=== PATIENT | male | born 1945 | race Caucasian/White ===

== ENCOUNTER 2016-12-29 09:29 | Day surgery (SDC) | payer MEDICARE, BC ==
[2016-12-29] MEDS ORDERED: LIDOCAINE HCL 1% MDV 20 ML VIAL SQ ONE (14:00)
[2016-12-29] MEDS ORDERED: TRAMADOL HCL 50 MG TABLET PO ONE (14:13)
[2016-12-29] MEDS ORDERED: PROPOFOL 10 MG/ML VIAL IV ONE (14:15)
[2016-12-29] MEDS ORDERED: MORPHINE SULFATE 5 MG/ML PFS IVP ONE (14:15)
[2016-12-29] MEDS ORDERED: LIDOCAINE 2% MDV (20MG/ML) 20ML VIAL IV ONE (14:15)
--- NOTE | 2017-01-02 10:50 | Operative Note ---
DATE OF SERVICE: 12/29/2016. DATE OF SURGERY: 12/29/2016. Surgeon: Robb Sesay DO. REFERRING PHYSICIAN: Giacomo Ge MD. PREOPERATIVE DIAGNOSES: 1. Trigger finger of the right thumb. 2. Trigger finger, right index finger. POSTOPERATIVE DIAGNOSES: 1. Trigger finger of the right thumb. 2. Trigger finger, right index finger. OPERATION: 1. Tenotomy, A1 glenn, right thumb. 2. Tenotomy, A1 glenn, right index finger. PROCEDURE: This 71-year-old male was taken to the operating room, placed in the supine position on the operating room table, where assisted local anesthesia was utilized; 1% Xylocaine plain was used as a local anesthetic, infiltrating the skin of the flexure crease of the thumb, as well as the area overlying the A1 glenn of the right index finger. After appropriate sedation, the right upper extremity was prepped, local anesthetic instilled, and an incision was made in the flexor crease of the MCP joint, and dissection was carried down through the skin and subcutaneous tissue. The radial digital nerve was easily identified in the thumb, and this was retracted and protected to expose the A1 glenn, which was incised from its proximal to its distal margin under direct vision, and the tendon was completely freed. A significant amount of fraying of the flexor pollicis longus tendon was present. An odd staining of the tendon was also noted. Almost appeared to be a hemosiderin-type stain. There was increased fluid in the tendon sheath, as well. The wound was irrigated, and there was no debridement of the tendon to do, but the superficial fraying was not further disturbed. The wound was closed with interrupted 6-0 nylon suture. We then directed our attention to the index finger, making a longitudinal incision overlying the 2nd metacarpal head, and dissection was carried down through the skin and subcutaneous tissue. Approximately a cm and a half incision was used and the proximal edge of the A1 glenn identified, and the glenn was split from its proximal to its distal margin. Again some minor fraying of the tendon was noted with what appeared to be a yellowish-brown hemosiderin-type stain on the tendon, but the tendon passed freely. There was mild nodularity of the sublimis tendon of the index finger and flexor pollicis longus of the thumb. The index finger wound was irrigated and closed with interrupted 6-0 nylon suture, as was the thumb incision. Sterile dressings were applied, and the patient was taken to the recovery room in satisfactory condition. GROSS PATHOLOGY: This patient demonstrated minor fraying of both the thumb and index finger tendons, as described above with the yellowish staining. In addition, there was minor nodularity of the superficialis of the index finger and flexor pollicis longus of the thumb. JANND
== END 2016-12-29 12:30 | disposition home or self-care (01) ==
LOC: SUR 09:29
PROVIDERS: ATTEND Orthopaedic Surgery
DX: M65.311 Trigger thumb, right thumb (principal); M65.321 Trigger finger, right index finger; E11.9 Type 2 diabetes mellitus without complications; Z79.84 Long term (current) use of oral hypoglycemic drugs; Z79.4 Long term (current) use of insulin; I10 Essential (primary) hypertension; E03.9 Hypothyroidism, unspecified; Z79.02 Long term (current) use of antithrombotics/antiplatelets
CPT/HCPCS: 26055 ×2; 01810; J2270

== ENCOUNTER 2017-02-15 10:58 | Day surgery (SDC) | payer MEDICARE, BC ==
--- NOTE | 2017-02-15 07:16 | History and Physical Report ---
DATE: 02/15/2017. CHIEF COMPLAINT AND HISTORY OF CHIEF COMPLAINT: This patient presents with a history of an intractable lumbar radiculitis. Due to the failure of all therapies, a spinal cord stimulator trial was conducted on January 31, 2017, with 75 to 90 percent pain control. Due to the failure of all therapies and the success of the trial, he presents today for implantation of a permanent system. PAST MEDICAL HISTORY: Hypertension. PAST SURGICAL HISTORY: To be provided. MEDICATIONS ON ADMISSION: Plavix, aspirin, fish oil. ALLERGIES: To be provided. REVIEW OF SYSTEMS: The patient is appropriate and in no acute distress. The remainder of the systems review shows glasses, peripheral neuropathy, sleep disturbance, blood pressure problems, coronary artery disease, renal disease, degenerative arthritis. SOCIAL HISTORY: Noncontributory. FAMILY HISTORY: Hypertension, coronary artery disease, cancer. PHYSICAL EXAMINATION: General: Height is 5 feet, 5 inches. Weight is 240 pounds. Vital Signs: Not available. HEENT: Within normal limits. Lungs: Clear. Heart: Regular rate and rhythm. Abdomen: Nontender. Musculoskeletal: Examination of the musculoskeletal system shows diffuse tenderness in the lumbar spine. Range of motion causes pain throughout the low back and extending into the extremities. Ambulation: No assistive device utilized. Neurologic: Cranial nerves are intact. IMPRESSION: LUMBAR RADICULITIS, ICD-10 CODE M54.16 AND M54.17. PLAN: Due to the failure all therapies and the success of the trial, the patient is here for implantation of a permanent system. All of the potential risks, side effects, and complications have been carefully reviewed and discussed. Information from the solution strategist also outlining the risks, side effects, and complications has been reviewed. He understands and consents. The risks of spinal headache, nerve root injury, and spinal cord injury have all been discussed. The procedure will be performed on an outpatient basis. An overnight stay will be evaluated. ARLEEN HERRERA D.O. Date & Time JOB NUMBER: [id number] cc: Ledy Shepherd D.O. MTDD
[~2017-02-15 10:58] MED LIST: ACETAMINOPHEN 1,000 MG/100 ML BTL IV ONE; FAMOTIDINE 20MG TABLET PO ONE; MECLIZINE 25 MG TABLET PO ONE; METOCLOPRAMIDE 10 MG TABLET PO ONE; VANCOMYCIN HCL 1,000 MG in 0.9 % SODIUM CHLORIDE 250ML 250 ML IVPB ONE
[2017-02-15] MEDS ORDERED: PROPOFOL 10 MG/ML VIAL IV ONE (10:59)
[2017-02-15] MEDS ORDERED: LIDOCAINE 1% W/EPI 1:200,000 MPF 30ML SQ ONE (10:59)
[2017-02-15] MEDS ORDERED: FENTANYL PF 100MCG/2ML VIAL IV ONE (10:59)
[2017-02-15] MEDS ORDERED: BUPIVACAINE 0.75% W/EPI MPF 30ML VIAL IVP ONE (10:59)
[2017-02-15] MEDS ORDERED: MIDAZOLAM HCL 2MG/2ML VIAL IV ONE (10:59)
[2017-02-15] MEDS ORDERED: VANCOMYCIN HCL 500 MG VIAL IV ONE (10:59)
[2017-02-15] MEDS ORDERED: LIDOCAINE 2% MDV (20MG/ML) 20ML VIAL IV ONE (10:59)
[2017-02-15] MEDS ORDERED: ACETAMINOPHEN 325 MG TAB PO PRN ×2 (15:41)
[2017-02-15] MEDS ORDERED: METOCLOPRAMIDE 10 MG TABLET PO PRN (15:41)
[2017-02-15] MEDS ORDERED: DIPHENHYDRAMINE HCL IV 50 MG/ML VIAL IVP PRN ×2 (15:41)
[2017-02-15] MEDS ORDERED: HYDROCODONE/APAP 7.5/325MG TABLET PO PRN ×2 (15:41)
[2017-02-15] MEDS ORDERED: METOCLOPRAMIDE HCL 10 MG/2 ML VIAL IVP PRN (15:41)
[2017-02-15] MEDS ORDERED: HYDROMORPHONE HCL 2 MG/ML VIAL IM PRN (15:41)
[2017-02-15] MEDS ORDERED: OXYCODONE/APAP 10MG-325MG TABLET PO PRN ×2 (15:41)
[2017-02-15] MEDS ORDERED: AL HYDROX/MAG HYDROX 30ML UD PO PRN (15:41)
[2017-02-15] MEDS ORDERED: HYDROMORPHONE HCL 1 MG/ML CPJ IM PRN (15:41)
[2017-02-15] MEDS ORDERED: TEMAZEPAM 15 MG CAPSULE PO PRN ×2 (15:41)
[2017-02-15] MEDS ORDERED: DIPHENHYDRAMINE HCL 25 MG CAPSULE PO PRN ×2 (15:41)
[2017-02-15] MEDS ORDERED: SENNOSIDES/DOCUSATE SODIUM UD CAPSULE PO PRN ×2 (15:41)
[2017-02-15] MEDS ORDERED: 0.9 % SODIUM CHLORIDE 10ML SYR IVP SCH (22:00)
[2017-02-16] MEDS ORDERED: VANCOMYCIN HCL 1,000 MG in 0.9 % SODIUM CHLORIDE 250ML 250 ML IVPB ONE (01:00)
--- NOTE | 2017-02-16 10:20 | RADIOLOGY REPORT ---
EXAM: THORACOLUMBAR SPINE, SINGLE VIEW HISTORY: POSTOP. TECHNIQUE: A single AP view of the thoracic and lumbar spines was obtained. Comparison: 02/01/17 exam. FINDINGS: There are two stimulating wires with the proximal tips projecting over the superior T7 vertebral body. In addition, there is a new electronic device projecting over the right lower quadrant. Post surgical changes of the lumbar spine. IMPRESSION: NEW ELECTRONIC PUMP DEVICE PROJECTING OVER THE RIGHT LOWER QUADRANT. OTHER FINDINGS ARE GROSSLY STABLE. J[facility]BER: [id number] [facility]
--- NOTE | 2017-02-16 16:07 | Operative Note - [place] ---
DATE OF SURGERY: 02/15/17 PREOPERATIVE DIAGNOSES: 1. POST LUMBAR LAMINECTOMY SYNDROME, ICD-10 CODE = M96.1. 2. LUMBAR RADICULITIS, ICD-10 CODE = M54.16 AND M54.17. OPERATION: 1. FLUOROSCOPICALLY-GUIDED RIGHT EPIDURAL ACCESS T10-11, PLACEMENT OF SPINAL CORD STIMULATOR LEAD 1, A [employer] INFINION 16 WITH 16 ELECTRODES POSITIONED RIGHT T6. 2. FLUOROSCOPICALLY-GUIDED EPIDURAL ACCESS RIGHT T11/12. PLACEMENT OF SPINAL CORD STIMULATOR LEAD 2, A [employer] INFINION 16 WITH 16 ELECTRODES POSITIONED LEFT T6. 3. COMPLEX PROGRAMMING LEAD 1 OVER 20 MINUTES FOLLOWED BY COMPLEX PROGRAMMING OF LEAD 2 OVER 20 MINUTES. 4. INCISION, SUBCUTANEOUS DISSECTION, AND ANCHORING OF LEAD 1 AND LEAD 2 TO DEEP FASCIA WITH A [employer] LOCKING ANCHOR AND NONABSORBABLE SUTURE. 5. INCISION, SUBCUTANEOUS DISSECTION, AND CREATION OF A SUBCUTANEOUS POUCH AT RIGHT FLANK, SITE PICKED BY PATIENT, FOR GENERATOR IDENTIFIED [employer] PROGRAMMABLE RECHARGEABLE. 6. TUNNELING BETWEEN POUCHES, PLACEMENT OF EXTERNAL PORTION OF LEAD 1 AND LEAD 2 INTO GENERATOR POUCH, EACH LEAD INTERFACED TO GENERATOR. 7. SECURING OF GENERATOR TO POSTERIOR FASCIA AND THEN CLOSURE OF BOTH INCISIONS , VICRYL FOR FASCIA AND A RUNNING SUBCUTICULAR VICRYL FOR SKIN. DERMABOND CLOSURE TO APPROXIMATE EDGES OF THE WOUND. 8. COMPLEX RECOVERY ROOM PROGRAMMING INTERNAL GENERATOR HOME USE TWO STIMULATORS , 20 MINUTES. SURGEON: ARLENE HERRERA D.O. ANESTHESIA: LOCAL SEDATION. ANESTHESIA PROVIDER: SUHAS ROCK CRNA. INDICATION: This patient presents with a history of postlaminectomy radiculitis. Due to the failure of all therapies, stimulator trial was conducted with 75 to 80% pain control. Due to the failure of other therapies and the successful of the stimulator trial, he presents today for implantation of a permanent system. PROCEDURE: Intravenous line, vital sign monitoring, IV sedation, prepped and draped in sterile technique. Under imaging, the epidural interspace right of the midline at 10-11 and 11-12 were marked, infiltrated, and two separate curved access Epimed needles with [id number]. At 10-11, spinal cord stimulator lead 1, a [employer] Infinion 16 with 16 electrodes, positioned right of midline T6. With the epidural access right of midline at 11- 12, spinal cord stimulator lead 2, also a [employer] Infinion 16 with 16 electrodes positioned left of the midline at T6. Complex programming of lead 1 over 20 minutes followed by complex programming of lead 2 over 20 minutes ultimately resulting in a pattern of stimulation across the back and into legs; patient indicating we were in all of the areas of the pain. He was given the option to implant, continue to program or remove; he opted to implant. Questions repeated with the same response. The skin above both needles infiltrated, incision made, and subcutaneous dissection was conducted to form a pouch of suitable size and depth for the leads. The needles were removed then each lead was anchored to the supraspinous fascia with a [employer] [place] and nonabsorbable suture. At the right flank, the site picked by the patient for the generator, a [employer] Programmable Rechargeable, skin infiltrated, incision made, and subcutaneous dissection was conducted to form a pouch of suitable size and depth for the generator. A tunneling tool was used to carry the leads into the generator pouch and then each lead was interfaced to the generator. The generator was then secured to the fascia with nonabsorbable suture. The leads were placed into their own pouch and then both incisions were closed Vicryl for fascia and a running subcuticular Vicryl for skin. A Dermabond closure system was then used to approximate the edges of both wounds. He was transported to the Recovery Room stable showing no side-effects from the procedure or the sedation. When fully awake and alert, complex programming was then performed over 20 minutes re-establishing stimulation and pain control to all of the appropriate areas. He was instructed on the use of the system, provided with information and error messaging, and then prepared for discharge. DISCHARGE INSTRUCTIONS: 1. Although the Dermabond will allow showering, this should not happen for 24 hours. 2. Standard medications including Levaquin, the antibiotic, 500 mg once a day for 14 days. 3. All other medications resumed. 4. The office will contact the patient in the next 24-48 hours to set up an appointment in the office in 5-7 days to check the incisions. Until then, his activities should stay low. Limit bend, lift, push, pull. All other instructions provided, numbers to contact, problems given. At that point, he will be discharged. cc: Dr. Giacomo Haro JOB NUMBER: [id number] [facility]
== END 2017-02-15 20:00 | disposition home or self-care (01) ==
LOC: SUR 10:58 → MEDSURG 15:36 → SUR 20:00
PROVIDERS: ATTEND Pain Medicine Interventional Pain Medicine
DX: M96.1 Postlaminectomy syndrome, not elsewhere classified (principal); M54.16 Radiculopathy, lumbar region; M54.17 Radiculopathy, lumbosacral region; E11.9 Type 2 diabetes mellitus without complications; Z79.84 Long term (current) use of oral hypoglycemic drugs; Z79.4 Long term (current) use of insulin; I10 Essential (primary) hypertension; E03.9 Hypothyroidism, unspecified; E78.00 Pure hypercholesterolemia, unspecified
CPT/HCPCS: 63685; 63650 ×2; 01936; 95972; 85002; 72020; J3370; J3010; J3490; J7050

== ENCOUNTER 2018-03-17 18:12 | Observation (INO) | payer MEDICARE, BC ==
[2018-03-17] MEDS ORDERED: ONDANSETRON HCL IV 4 MG/2 ML VIAL IV ONE (18:29)
[2018-03-17] MEDS ORDERED: SODIUM CHLORIDE 0.9% 500 ML IV ONE (18:29)
[2018-03-17] MEDS ORDERED: HYDROMORPHONE HCL 2 MG/ML VIAL IVP ONE ×3 (18:30→20:05)
--- NOTE | 2018-03-17 18:34 | Emergency Department Record ---
History of Present Illness - General Chief Complaint: Abdominal Pain Stated Complaint: RT SIDE PAIN Time Seen by Provider: 03/17/18 18:18 Source: Patient Mode of Arrival: Ambulatory Limitations: No limitations - History of Present Illness Initial Comments: The patient is here due to RUQ AP which began about 4 hours ago. The pain is sharp and stabbing and does radiate around to his back. The patient has had no nausea, vomiting, diarrhea or fever. He had a similar issues on 12/30/17 and he did come to the ER and had a neg workup. The pain did resolve with Dilaudid on that visit. He then also did have a neg Abd US on 01/05/18 as an outpatient. Additionally the patient did have a small amount of "clamminess" with the onset of the pain and felt like his blood sugar could have been low. He did check it and it was just over 100. There was no reported CP, SOB, MARYJANE, or nausea with the clamminess. The patient does have an extensive cardiac hx with a neg nuclear stress test 6 weeks ago. MD Complaint: Abdominal pain Onset/Timin -: Hour(s) Location: RUQ Radiation: Back Severity: Moderate Severity scale (1-10): 9 Quality: Sharp, Stabbing Consistency: Constant Improves With: Nothing Worsens With: Nothing - Related Data Allergies Allergy/AdvReac Type Severity Reaction Status Date / Time hydralazine Allergy CHEST PAIN Verified 03/17/18 18:17 Travel Screening - Travel/Exposure Within Last 30 Days Have you traveled within the last 30 days?: No - Travel/Exposure Within Last Year Have you traveled outside the [place] in the last year?: No - Additonal Travel Details Have you been exposed to anyone with a communicable illness?: No - Travel Symptoms Symptom Screening: None Review of Systems Constitutional: Denies: Chills, Fever Eyes: Denies: Eye discharge ENT: Denies: Congestion Respiratory: Denies: Cough, Dyspnea Cardiovascular: Denies: Arrhythmia, Chest pain Endocrine: Denies: Fatigue Gastrointestinal: Reports: Abdominal pain. Denies: Diarrhea, Nausea Genitourinary: Denies: Dysuria Musculoskeletal: Reports: Back pain (Chronic.). Denies: Arthralgia Skin: Denies: Bruising Past Medical History - SOCIAL HISTORY Smoking Status: Never smoker Alcohol Use: None Drug Use: None - RESPIRATORY Hx Respiratory Disorders: Yes Hx Pneumonia: Yes Hx Sleep Apnea: Yes Hx of CPAP: Yes - CARDIOVASCULAR Hx Cardio Disorders: Yes Hx Cardiac Cath: Yes Hx Chest Pain: Yes Hx Hypertension: Yes Hx Coronary Artery Disease: Yes Hx Coronary Stent: Yes (x's 5 winter of 2015 since last one) - NEURO Hx Neuro Disorders: Yes Comment:: OCC. LIGHTHEADED IF HE STANDS UP QUICKLY - GI Hx GI Disorders: Yes Hx Pancreatitis: Yes (YEARS AGO) Hx Ulcer: Yes Hx of Polyps: Yes (COLON BENIGN) - Hx Genitourinary Disorders: Yes Hx Kidney Stones: Yes (X1) - ENDOCRINE Hx Endocrine Disorders: Yes Hx Diabetes: Yes Hx Thyroid Disease: Yes Comment:: running kind of low lately - MUSCULOSKELETAL Hx Musculoskeletal Disorders: Yes Hx Arthritis: Yes - PSYCH Hx Psych Problems: No - HEMATOLOGY/ONCOLOGY Hx Hematology/Oncology Disorders: Yes Hx Bruising: Yes (BLOOD THINNER) Family Medical History Any Significant Family History?: No Physical Exam - General General Appearance: Alert, Oriented x3, Cooperative, No acute distress - Head Head exam: Atraumatic, Normocephalic, Normal inspection - Eye Eye exam: Normal appearance, PERRL - Neck Neck exam: Normal inspection, Full ROM. negative: Tenderness - Respiratory Respiratory exam: Normal lung sounds bilaterally. negative: Respiratory distress - Cardiovascular Cardiovascular Exam: Regular rate, Normal rhythm, Normal heart sounds - GI/Abdominal GI/Abdominal exam: Soft, Tenderness (There is significant RUQ tenderness.). negative: Guarding, Pulsatile mass, Rebound, Rigid - Extremities Extremities exam: Normal inspection, Full ROM, Normal capillary refill. negative: Tenderness - Neurological Neurological exam: Alert, Normal gait. negative: Abnormal gait, Motor sensory deficit - Psychiatric Psychiatric exam: negative: Anxious Course Vital Signs 03/17/18 18:28 Temperature 97.7 F Pulse Rate 60 Respiratory 20 Rate Blood Pressure 217/79 Pulse Ox 99 - Reevaluation(s) Reevaluation #1: The patient is doing better but is still having mild pain. There has been no CP or SOB or vomiting. I did discuss the lab and CT results with the patient and family and did discuss the need to stay in the hospital overnight due to the pain and the Trop being in the Indeterminant range. I also did discuss the case with Dr. Melara and he does accept the admission. We will admit overnight and trend his cardiac enzymes and recheck labs for his abdominal pain in the AM. 03/17/18 20:26 Medical Decision Making - Data Complexity MDM Data: Labs Ordered and/or Reviewed, X-Ray Ordered and/or Reviewed, EKG Ordered and/or Reviewed - Lab Data Result diagrams: 03/17/18 18:40 03/17/18 18:40 - EKG Data -: EKG Interpreted by Me EKG: No Acute Changes, Unchanged From Previous, LBBB - Radiology Data Radiology results: Report reviewed (Abd CT: Neg for acute changes.) Disposition Disposition: Admit Clinical Impression: Abdominal pain Qualifiers: Abdominal location: right upper quadrant Qualified Code(s): R10.11 - Right upper quadrant pain Disposition: Still a Patient at [facility] Decision to Admit: Admit from ER Decision to Admit Date: 03/17/18 Decision to Admit Time: 20:28 Accepting Physician: Saritha Time Discussed w/Accepting Physician: 20:28 Condition: (2) Stable Time of Disposition: 20:28 Quality - Quality Measures Quality Measures: N/A - Blood Pressure Screening View Details: Yes Does Patient Have Any of the Following: Active Dx of HTN Blood Pressure Classification: Hypertensive Reading Systolic Measurement: 217 Diastolic Measurement: 79 Screening for High Blood Pressure: Patient Exclusion, Hx of HTN [[id number]]
[2018-03-17 18:49] LABS: BASO % 0.3 % (0-6); EOS % 3.1 % (0-6); GRAN % 78.2 % (47-80); HEMATOCRIT 38.9 % (42.0-52.0); HEMOGLOBIN 12.2 gm/dl (14.0-18.0); LYMPH % 13.9 % (16-45); MEAN CELL VOLUME 83.7 fl (81-97); MEAN CORPUSCULAR HEMOGLOBIN 26.2 pg (27-33); MEAN CORPUSCULAR HGB CONC 31.4 g/dl (32-36); MEAN PLATELET VOLUME 10.4 fl (7.4-10.4); MONO % 4.5 % (0-9); PLATELET COUNT 154 K/uL (130-400); RED BLOOD COUNT 4.65 M/uL (4.40-5.70); URINE APPEARANCE CLEAR; URINE BILIRUBIN NEGATIVE (NEGATIVE); URINE BLOOD TRACE-I (NEGATIVE); URINE COLOR YELLOW; URINE KETONE NEGATIVE (NEGATIVE); URINE LEUKOCYTE ESTERASE NEGATIVE (NEGATIVE); URINE NITRITE NEGATIVE (NEGATIVE); URINE PROTEIN TRACE (NEGATIVE); URINE UROBILINOGEN 0.2 E.U./dL (0.20 - 1.00); WHITE BLOOD COUNT W/O DIFF 12.4 K/uL (4.2-12.2)
[2018-03-17 18:56] LABS: URINE GLUCOSE (UA) >=1000 mg/dL (NEGATIVE)
[2018-03-17 18:58] LABS: URINE EPITHELIAL CELLS 0 - 2 (FEW); URINE WBC 0 - 2 (0-2/hpf)
[2018-03-17 18:59] LABS: URINE BACTERIA NONE SEEN
[2018-03-17 19:02] LABS: BLOOD UREA NITROGEN 27 mg/dL (8-23); CREATININE 1.2 mg/dL (0.7-1.2); EST GLOMERULAR FILTRATION RATE > 60 mL/min
[2018-03-17 19:03] LABS: TOTAL PROTEIN 7.1 g/dL (6.6-8.7)
[2018-03-17 19:05] LABS: GLUCOSE,RANDOM 150 mg/dL (74-109)
[2018-03-17 19:08] LABS: ALBUMIN 4.5 g/dL (4.0-5.0); ALKALINE PHOSPHATASE 35 U/L (40-129); ALT/SGPT 28 U/L (<41); AST/SGOT 30 U/L (10.0-50.0); BILIRUBIN,DIRECT < 0.2 mg/dL (0-0.3); LIPASE 37 U/L (13-60)
[2018-03-17] MEDS ORDERED: 0.9 % SODIUM CHLORIDE 1000ML 1,000 ML IV PRN (20:50)
--- NOTE | 2018-03-17 20:55 | CT SCAN REPORT ---
EXAM: CT SCAN ABDOMEN/PELVIS WO CONTRAST HISTORY: RIGHT UPPER QUADRANT PAIN. TECHNIQUE: CT of the abdomen and pelvis is performed without intravenous or oral contrast. COMPARISON: 12/30/2017. FINDINGS: Evaluation is compromised by the lack of IV and oral contrast. Lung bases are unremarkable. No hepatic mass identified. The spleen is unremarkable. No pancreatic mass or inflammatory change. There are no calcified gallstones. Bile ducts are not dilated. There is a left adrenal nodule. This measures approximately 1.4 cm and is unchanged. Adrenal glands otherwise are unremarkable. There are no renal or ureteral calculi. There are bilateral parapelvic renal cysts. There is a small 1.2 cm exophytic lesion projecting from the superior pole of the left kidney, most likely a cyst but too small to definitively assess. Kidneys otherwise are unremarkable. There are atherosclerotic changes in the abdominal aorta. There is no aneurysm. There are no dilated bowel loops. There is no pelvic mass, abscess, or adenopathy. There is no free air or free fluid. The appendix is surgically absent. A few diverticula are present. There is no CT evidence for diverticulitis. Postoperative changes are present in the lumbar spine. A neural stimulator is present overlying the posterior aspect of the thoracic spinal canal. IMPRESSION: 1. NO ACUTE ABDOMINAL OR PELVIC PROCESS IDENTIFIED. 2. NO CALCIFIED GALLSTONES. IF THERE IS CONTINUED CLINICAL CONCERN FOR CHOLELITHIASIS, ULTRASOUND COULD BE PERFORMED. 3. A 1.2 CM EXOPHYTIC LESION SUPERIOR POLE OF THE LEFT KIDNEY, UNCHANGED, PROBABLY A CYST BUT TOO SMALL TO DEFINITIVELY ASSESS. 4. LEFT ADRENAL NODULE, UNCHANGED. 5. BILATERAL PARAPELVIC RENAL CYSTS. 6. POSTOPERATIVE CHANGES LUMBAR SPINE WITH A NEURAL STIMULATOR PRESENT. 7. DIVERTICULOSIS WITHOUT CT EVIDENCE FOR DIVERTICULITIS. JOB NUMBER: [id number] [facility]
[2018-03-17] MEDS: ASPIRIN 325 MG TAB ENTERIC-COATED PO SCH (21:41)
[2018-03-17] MEDS: ACETAMINOPHEN 500 MG TABLET PO SCH (21:41)
[2018-03-17] MEDS: CARVEDILOL 12.5 MG TABLET PO SCH (21:42)
[2018-03-17] MEDS: ONDANSETRON HCL IV 4 MG/2 ML VIAL IVP PRN (22:24)
[2018-03-17] MEDS: HYDROMORPHONE HCL 2 MG/ML VIAL IVP PRN (22:24)
[2018-03-17] MEDS: RANOLAZINE 1000 MG PO SCH (22:25)
[2018-03-18] MEDS: ONDANSETRON HCL IV 4 MG/2 ML VIAL IVP PRN ×2 (02:38→06:55)
[2018-03-18] MEDS: HYDROMORPHONE HCL 2 MG/ML VIAL IVP PRN ×2 (02:38→06:56)
[2018-03-18] MEDS ORDERED: LEVOTHYROXINE SODIUM 100 MCG TABLET PO SCH (07:00)
[2018-03-18 07:54] LABS: HEMATOCRIT 35.6 % (42.0-52.0); MEAN CORPUSCULAR HEMOGLOBIN 25.9 pg (27-33); MEAN CORPUSCULAR HGB CONC 30.9 g/dl (32-36); MEAN PLATELET VOLUME 9.5 fl (7.4-10.4); PLATELET COUNT 255 K/uL (130-400); RED BLOOD COUNT 4.24 M/uL (4.40-5.70); RED CELL DISTRIBUTION WIDTH 15.9 % (11.5-14.5); WHITE BLOOD COUNT W/O DIFF 16.3 K/uL (4.2-12.2)
[2018-03-18 08:04] LABS: BLOOD UREA NITROGEN 21 mg/dL (8-23); CREATININE 1.1 mg/dL (0.7-1.2); EST GLOMERULAR FILTRATION RATE > 60 mL/min; GLUCOSE,RANDOM 131 mg/dL (74-109)
[2018-03-18 08:08] LABS: ALBUMIN 3.8 g/dL (4.0-5.0); ALKALINE PHOSPHATASE 33 U/L (40-129); ALT/SGPT 35 U/L (<41); AST/SGOT 41 U/L (10.0-50.0); LIPASE 11 U/L (13-60); TOTAL PROTEIN 6.2 g/dL (6.6-8.7)
[2018-03-18 08:14] LABS: BILIRUBIN,DIRECT < 0.2 mg/dL (0-0.3)
[2018-03-18] MEDS: ASPIRIN 325 MG TAB ENTERIC-COATED PO SCH (09:10)
[2018-03-18] MEDS: ACETAMINOPHEN 500 MG TABLET PO SCH (09:11)
[2018-03-18] MEDS: CARVEDILOL 12.5 MG TABLET PO SCH (09:11)
[2018-03-18] MEDS: RANOLAZINE 1000 MG PO SCH (09:14)
[2018-03-18] MEDS ORDERED: ATORVASTATIN 20 MG TABLET PO SCH (10:00)
[2018-03-18] MEDS ORDERED: ISOSORBIDE MONONITRATE 60 MG TAB.ER.24H PO SCH (10:00)
[2018-03-18] MEDS ORDERED: AMLODIPINE BESYLATE 5MG TAB PO SCH (10:00)
[2018-03-18] MEDS ORDERED: PANTOPRAZOLE SODIUM 40 MG TABLET PO SCH (10:00)
[2018-03-18] MEDS ORDERED: EZETIMIBE 10 MG TABLET PO SCH (10:00)
[2018-03-18] MEDS ORDERED: CLOPIDOGREL 75MG TABLET PO SCH (10:00)
[2018-03-18] MEDS ORDERED: LISINOPRIL 20 MG TABLET PO SCH (10:00)
[2018-03-18] MEDS ORDERED: HYDROCHLOROTHIAZIDE 25 MG TABLET PO SCH (10:00)
--- NOTE | 2018-03-18 13:04 | Discharge Note ---
VTE H&P Assessment - Risk for VTE Risk for VTE: Yes Risk Level: Low Risk Assessment Date: 03/18/18 Risk Assessment Time: 12:59 VTE Orders Placed or Will Be Placed: No VTE Reason for No Prophylaxis: Not Indicated Discharge Medications - Discharge Medications Prescriptions: Hydrocodone/Acetaminophen [[place] 5-325 Tablet] 1 each PO Q6HR #10 tablet Home Medications: Ambulatory Orders Acetaminophen [Tylenol 500Mg Tab] 500 mg PO BID 12/30/17 [Last Taken 03/17/18] Amlodipine Besylate [Norvasc] 5 mg PO DAILY 12/30/17 [Last Taken 03/17/18] Ascorbic Acid [Vitamin C] 500 mg PO DAILY 12/30/17 [Last Taken 03/17/18] Aspirin [Aspirin EC] 81 mg PO DAILY 12/30/17 [Last Taken 03/17/18] Calcium Carbonate/Vitamin D3 [Calcium 600 + Vit D Tablet] 1 each PO DAILY [Last Taken 03/17/18] Canagliflozin [Invokana] 300 mg PO DAILY 12/30/17 [Last Taken 03/17/18] Carvedilol [Coreg] 25 mg PO BID 12/30/17 [Last Taken 03/17/18] Cholecalciferol (Vitamin D3) [Vitamin D3] 5,000 unit PO DAILY 12/30/17 [Last Taken 03/17/18] Clopidogrel Bisulfate [Plavix] 75 mg PO DAILY 12/30/17 [Last Taken 03/17/18] Ezetimibe [Zetia] 10 mg PO DAILY 12/30/17 [Last Taken 03/17/18] Fenofibric Acid (Choline) [Trilipix] 135 mg PO QPM 12/30/17 [Last Taken 03/17/18 ] Glucosamine HCl 1,500 mg PO DAILY 12/30/17 [Last Taken 03/17/18] Insulin Glargine,Hum.rec.anlog [Lantus] 70 unit SQ QHS 12/30/17 [Last Taken ] Insulin Lispro [Humalog] 35 unit SQ QAM 12/30/17 [Last Taken 03/17/18] Insulin Lispro [Humalog] 45 unit SQ 1200 12/30/17 [Last Taken 03/17/18] Insulin Lispro [Humalog] 45 unit SQ QPM 12/30/17 [Last Taken 03/17/18] Isosorbide Mononitrate [Imdur] 120 mg PO DAILY 12/30/17 [Last Taken 03/17/18] Levothyroxine Sodium [Synthroid] 100 mcg PO DAILY 12/30/17 [Last Taken 03/17/18] Lisinopril/Hydrochlorothiazide [Lisinopril-Hctz 20-25 mg Tab] 1 each PO DAILY [Last Taken 03/17/18] Lysine [l-Lysine] 1,000 mg PO DAILY 12/30/17 [Last Taken 03/17/18] Metformin HCl [Metformin HCl ER] 1,000 mg PO BID 12/30/17 [Last Taken 03/17/18] Multivitamin [Multi-Vitamin Daily] 1 each PO DAILY 12/30/17 [Last Taken 03/17/18 ] [place]-3 Fatty Acids/Fish Oil [Fish Oil 1,000 mg Capsule] 1 each PO BID 12/30/17 [Last Taken 03/17/18] Pantoprazole Sodium [Protonix] 40 mg PO DAILY 12/30/17 [Last Taken 03/17/18] Ranolazine [Ranexa] 1,000 mg PO BID 12/30/17 [Last Taken 03/17/18] Rosuvastatin Calcium [Crestor] 40 mg PO DAILY 12/30/17 [Last Taken 03/17/18] Ubidecarenone/Vit E/Vit E Mix [Co-Enzyme Q10 100 mg Softgel] 1 each PO DAILY 12/09 [Last Taken 03/17/18] Hydrocodone/Acetaminophen [[place] 5-325 Tablet] 1 each PO Q6HR #10 tablet [Last Taken Unknown] Discharge Note - Date Date of Discharge Note: 03/18/18 Disposition: Home, Self-Care Condition: (2) Stable Instructions: Abdominal Pain (ED) Additional Instructions: follow up alf Orozco or Dr Cruz in 5-10 days obtain hida scan in the next few days and the hospital will call for when that will happen low fat diet norco pain pills one every 6 hours as needed Forms: Patient Portal Access Activity at Discharge: Increase Activity as Tolerated Diet at Discharge: Low Fat, Low Cholesterol
[2018-03-18] MEDS ORDERED: ROSUVASTATIN 40 MG PO SCH (22:00)
--- NOTE | 2018-03-19 08:21 | History and Physical Report ---
CHIEF COMPLAINT: Right upper quadrant abdominal pain. HISTORY OF PRESENT ILLNESS: This 73-year-old male presented to the Emergency Department and evaluated by Dr. Venegas with right upper quadrant abdominal pain. The pain was initially described as being sharp beginning about 14:00 yesterday , took a Pepcid AC which did not help. He had a similar episode two or three months ago which was evaluated in the Emergency Department, sent home with no findings on the laboratory analysis or the x-rays. Currently the has C. difficile gastroenteritis. Patient described the pain as sharp in nature radiating around into his back. No nausea, vomiting, diarrhea or fever. He had a similar episode on 12/30/17, his work-up was negative then. He had an ultrasound done on 01/05/18 which was negative for gallstones. He was given Dilaudid on that ER visit and he felt better. He went home without any troubles. His blood sugar is running appropriately. He denies any chest pain, shortness of breathing, or difficulty breathing. No nausea and no clamminess. The patient does have an extensive cardiac history and a negative nuclear stress test six weeks ago by I believe Dr. Landry, but he may be just switching over to Dr. Landry, he was with Dr. Alvarez. He also had a carotid Doppler which was negative according to the patient. On my evaluation this morning at 12:30 he was feeling much better, he had very little pain left in the right upper quadrant. He described that at gi he did drink whole milk which may have set him off and in light of negative ultrasound for gallstones I feel he needs a HIDA scan to make sure he doesn't have a low functioning gallbladder. The patient sees the master coastwise yacht Dr. 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 Landry. PAST MEDICAL HISTORY: Cardiac artery disease with stents placed most recently in 2015, he has had five different stenting episodes the earliest being 2002. He also has diabetes mellitus Type 2 with insulin use, hypertension, GERD, hypercholesterolemia. He has sleep apnea, he uses C-PAP. He has had a history of pancreatitis years ago. Polyps of the colon which were benign, kidney stones times one, hypothyroidism, arthritis. PAST SURGICAL HISTORY: Cardiac stents times five with the last one in April of 2015, right adrenal surgery, appendectomy in 1982, trigger finger and thumb surgery, he has a spinal cord stimulator for low back pain, Dr. Guaman is his pain doctor. MEDICATIONS ON ADMISSION: Co-Q 10 100 mg daily, Crestor 40 mg daily, Ranexa 1, 000 mg b.i.d., Protonix 40 mg daily, [place] 3 fatty acids one b.i.d., multiple vitamins one a day, Metformin 1,000 mg b.i.d., Lysine 1,000 mg daily, Lisinopril /Hydrochlorothiazide 20/25 one daily, Levothyroxine 1,000 mcg daily, Isosorbide mononitrate 120 mg daily, Humalog insulin 35 units before breakfast, 45 units before lunch, and 45 units before dinner, Lantus 70 units daily and he also informed me verbally that his endocrine doctor started him on Lantus twice a day and he is to take 20 more in the morning. He is taking Glucosamine 1,500 a day, Fenofibrate triplex 135 mg daily, Zetia 10 mg daily, Plavix 75 mg daily, vitamin D3 5,000 units daily, Coreg 25 mg b.i.d., Invokana 300 mg daily, calcium with vitamin D one daily, aspirin 81 mg daily, vitamin C 500 mg daily, Amlodipine 5 mg daily, Tylenol 500 mg b.i.d., Hydrocodone one q six hours prn for breakthrough pain, he has a back stimulator for his back pain. ALLERGIES: HYDRALAZINE. FAMILY/PSYCHOSOCIAL HISTORY: No significant family history. He denies any any drug use or alcohol use. Never smoked cigarettes. REVIEW OF SYSTEMS: HEENT - No upper respiratory infectious symptoms, cough, cold or congestion. Cardiovascular - No chest pain, palpitations, or arrhythmias. Respiratory - No cough, cold or congestion. Gastrointestinal - See chief complaint. There is right upper quadrant pain. No vomiting or diarrhea. Genitourinary - No dysuria, hematuria, frequency, or burning on urination. Musculoskeletal - He does have chronic low back pain and he uses his spinal cord stimulator. Neurologic - No CVA, paralysis, or paresthesias. Endocrine - He does have diabetes mellitus Type 2 on insulin and he has hypothyroidism and is on thyroid medication. Integument - No rashes, ulcers, change in moles, or yellow skin. PHYSICAL EXAMINATION: Height is 5'4", weight is 221 pounds. Vital signs - His temperature was 100.8, pulse was 68, blood pressure was 108/60, respiratory rate was 18, pulse ox was 94% on room air. HEENT: Pupils are equal, round and reactive to light and accommodation. Extraocular muscles are intact. Throat is clear. Nose is clear. Tympanic membranes are cortez. NECK: Supple. No jugular venous distention. No hepatojugular reflex. No carotid bruits. Thyroid is smooth. CARDIOVASCULAR: Regular rate and rhythm without murmurs, clicks, rubs or gallops. RESPIRATORY: Clear to auscultation and percussion. ABDOMEN: Soft, nontender. No hepatosplenomegaly. No masses. No tenderness. Bowel sounds are active. No bruits. EXTREMITIES: No pitting edema. No cyanosis. No clubbing. Full range of motion. Peripheral pulses are good. BREASTS: Normal male breasts. RECTAL: Deferred. GENITALIA: Normal male genitalia. NEUROLOGICAL: Cranial nerves II through XII intact. No gross defects. Sensation normal. Strength normal. Deep tendon reflexes equal bilaterally. Babinski's negative. MENTAL STATUS: Alert and oriented times three. IMPRESSION: 1. BILIARY COLIC. 2. RULE OUT GALLBLADDER DYSFUNCTION. PLAN: Set up a HIDA scan this week, follow-up with Dr. Ge or Hannah in the next 7-10 days, Dalton is prescribed 5 mg q six hours prn pain and a low fat diet. JOB NUMBER: [id number] [facility]
--- NOTE | 2018-03-20 10:41 | Discharge Summary ---
DATE OF ADMISSION: DATE OF DISCHARGE: Attending physician: Andreas Melara DO DISCHARGE DIAGNOSES: 1. Right upper quadrant abdominal pain. 2. Biliary colic. 3. Rule out gallbladder dysfunction. REASON FOR HOSPITALIZATION: Right upper quadrant abdominal pain which started about 4 to 6 hours prior to coming to the emergency department. He had a workup for the same pain about 2 months ago, which was negative, with an ultrasound of the gallbladder negative for stones. He also has a history of cardiac disease. His last cardiac stent placed in 2016 and he has 5 different stenting episodes. He was admitted for serial cardiac enzymes and his first Troponin was just slightly into the indeterminate range. His EKG showing left bundle branch block, no acute changes. He had no chest pain. SIGNIFICANT FINDINGS: He was feeling much better when I made rounds on him. He is having some discomfort in the right upper quadrant and he told me that he used whole milk on Thanksgiving, this may have triggered his pain. FINDINGS ON EXAMINATION: Abdominal CT no acute abnormality or pelvic process identified, no calcified gallstone, 1.2 cm exophytic lesion superior pole of the left kidney, unchanged, probably a cyst, but too small to definitely assess. Left adrenal nodule unchanged, bilateral parapelvic renal cyst. Postop changes lumbar spine with a neurostimulator present, diverticulosis as well as CT evidence of diverticulitis. LABORATORY: His initial white count was 12,400, went up to 16,300, hemoglobin is 11.0 on discharge. His BUN is 21, creatinine is 1.1, Troponin was negative at two time points. Urine was showing 3 to 6 RBCs, no WBCs, no bacteria. THERAPY PROVIDED: The patient was given IV fluids and pain control. He did have a slight fever early in the morning. His discharge vitals: Pulse was 68, blood pressure 108/60, pulse OX is 94% on room air, respiratory rate is 18. I discussed the case with the patient and I explained to him we will set up an outpatient HIDA scan and follow up with Pam Alberto or Dr. Ge in a week. HOSPITAL COURSE: He is feeling much better. CONDITION ON DISCHARGE: Much improved. DISCHARGE INSTRUCTIONS: 1. Follow up with Pam Alberto or Dr. Ge in 1 week. 2. HIDA scan will be set up in the next 2 or 3 days. 3. Further evaluation if worse. 4. Continue his home medications, which are documented on the computer discharge note. MTDD
== END 2018-03-18 14:22 | disposition home or self-care (01) ==
LOC: ER 18:12 → MEDSURG 20:46
PROVIDERS: ADMIT Emergency Medicine; ATTEND Emergency Medicine
DX: K80.51 Calculus of bile duct without cholangitis or cholecystitis with obstruction (principal); I10 Essential (primary) hypertension; I25.10 Atherosclerotic heart disease of native coronary artery without angina pectoris; E03.9 Hypothyroidism, unspecified; E11.9 Type 2 diabetes mellitus without complications; Z79.4 Long term (current) use of insulin; G47.30 Sleep apnea, unspecified; M19.90 Unspecified osteoarthritis, unspecified site; Z95.5 Presence of coronary angioplasty implant and graft; Z87.11 Personal history of peptic ulcer disease; Z87.442 Personal history of urinary calculi
CPT/HCPCS: 36416; 74176; 80048; 80076; 81001; 82948; 83690; 84484; 85025; 85027; 93005; 93010; 94760; 96374; 96375; 96376; 99220; 99285; J2405

== ENCOUNTER 2019-03-14 07:54 | Day surgery (SDC) | payer MEDICARE, BC ==
[2019-03-14] MEDS ORDERED: LIDOCAINE 2% MDV (20MG/ML) 20ML VIAL IV ONE (07:55)
[2019-03-14] MEDS ORDERED: PROPOFOL 10 MG/ML VIAL IV ONE (07:55)
--- NOTE | 2019-03-15 12:41 | Operative Note ---
OPERATION: COLONOSCOPY with cold snare polypectomy. PREOPERATIVE DIAGNOSIS: Personal history of colon polyps. POSTOPERATIVE DIAGNOSES: 1. Sigmoid polyp. 2. Colonic diverticulosis. ESTIMATED BLOOD LOSS: Minimal. SPECIMENS: Sigmoid colon. PREPARATION QUALITY: Good. COMPLICATIONS: None apparent. PROCEDURE: After informed consent was obtained from the patient, he was placed in the left lateral decubitus position in the endoscopy suite, sedated and monitored by the department of anesthesia. Digital rectal exam was unremarkable. A well-lubricated [id number] colonoscope was inserted into the rectum and advanced to the cecum. Preparation quality was good. The cecum, cecal bulb, ileocecal valve, appendiceal orifice, ascending colon, transverse colon, and descending colon were unremarkable. There, however, were a few scattered diverticula in the ascending colon. The sigmoid colon also revealed a few scattered diverticula. There was a 6 mm sessile polyp in the sigmoid colon removed with a cold snare. Minimal bleeding was noted. The polyp was retrieved. The rectum was unremarkable in forward and J-turn views. The endoscope was straightened, the rectal ampulla deflated, and the endoscope was removed. RECOMMENDATIONS: The patient should follow a high-fiber diet and resume his medications. He will require repeat exam in 5 years should his health allow. As always, thank you for allowing me to participate in the healthcare of your patients. JARED
== END 2019-03-14 10:08 | disposition home or self-care (01) ==
LOC: HOP 07:54
PROVIDERS: ATTEND Internal Medicine Gastroenterology
DX: Z12.11 Encounter for screening for malignant neoplasm of colon (principal); Z86.010 Personal history of colon polyps; D12.5 Benign neoplasm of sigmoid colon; K57.30 Diverticulosis of large intestine without perforation or abscess without bleeding; I10 Essential (primary) hypertension; E11.9 Type 2 diabetes mellitus without complications; K21.9 Gastro-esophageal reflux disease without esophagitis; E78.00 Pure hypercholesterolemia, unspecified; E03.9 Hypothyroidism, unspecified

== ENCOUNTER 2019-04-11 09:36 | Day surgery (SDC) | payer MEDICARE, BC ==
[2019-04-11] MEDS ORDERED: BRIMONIDINE TARTRATE 0.2% OPTHALMIC DROPS OP ONE ×2 (09:37→11:37)
[2019-04-11] MEDS ORDERED: PROPOFOL 10 MG/ML VIAL IV ONE (09:37)
[2019-04-11] MEDS ORDERED: LIDOCAINE 2% MDV (20MG/ML) 20ML VIAL IV ONE (09:37)
[2019-04-11] MEDS ORDERED: 0.9 % SODIUM CHLORIDE 1000ML 500 ML IV ONE ×2 (10:29→11:38)
[2019-04-11] MEDS ORDERED: LIDOCAINE 2% MDV (20MG/ML) 20ML VIAL INJ ONE (11:37)
[2019-04-11] MEDS ORDERED: TIMOLOL MALEATE 0.5% 5ML BTL OPTH ONE (11:37)
[2019-04-11] MEDS ORDERED: EPINEPHRINE 1 MG/ML AMPUL IO ONE (11:37)
[2019-04-11] MEDS ORDERED: NEOM/BACI/POLY/HC 3.5 GM OPTH OINT OPTH ONE (11:37)
[2019-04-11] MEDS ORDERED: TRIAMCINOLONE ACET 40 MG/ML VIAL IM ONE ×2 (11:37→11:46)
[2019-04-11] MEDS ORDERED: TETRACAINE HCL 0.5% OPTH 2ML SOLU OPTH ONE (11:37)
[2019-04-11] MEDS ORDERED: LIDOCAINE 1% MPF 100MG/10ML STERILE-PAK AMPULE SQ ONE (11:39)
--- NOTE | 2019-04-11 15:06 | OP NOTE CHAMES ---
DATE OF PROCEDURE: 04/11/2019 PREOPERATIVE DIAGNOSIS: Nuclear sclerotic and cortical cataract, left eye. POSTOPERATIVE DIAGNOSIS: Nuclear sclerotic and cortical cataract, left eye. OPERATION: Phacoemulsification of cataractous lens with implantation of intraocular lens. LENS IMPLANT USED: [employer] Model PCB00 + 19.0 diopters. COMPLICATIONS: None. PROCEDURE IN DETAIL: Following a retrobulbar and facial block, the patient was prepped and draped in the usual fashion for eye surgery. A lid speculum was placed in the left eye after which a 2.4 mm tunnel wound was placed at the temporal limbus and dissected into clear cornea. A paracentesis was placed at 2 oclock hours to the left and right of the initial incision and the chamber deepened with Viscoelastic. The keratome was then used to enter the anterior chamber after which the continuous circular capsulorrhexis was accomplished without difficulty using a bent needle and a Utrata forceps. Hydrodissection and hydrodelineation of the lens was performed after which the nucleus of the lens was removed using the Phaco handpiece in the [id number] technique. The residual cortical material was irrigated and aspirated from the eye after which the bag and chamber were re-examined. The bag was re-inflated with Viscoelastic and the intraocular lens injected into the capsular bag where it centered well. The Viscoelastic was then copiously irrigated and aspirated from the eye after which the temporal tunnel wound and paracentesis were hydrated and the wounds were examined. They were noted to be watertight. The lid speculum was removed from the eye and the eye patched and shielded. The patient was transferred to the recovery room in satisfactory condition and given an appointment to be reexamined in the clinic later today or as directed by Dr. Jewell. JOB NUMBER: [id number] [facility]
== END 2019-04-11 12:20 | disposition home or self-care (01) ==
LOC: SUR 09:36
PROVIDERS: ATTEND Ophthalmology
DX: H25.12 Age-related nuclear cataract, left eye (principal); E11.9 Type 2 diabetes mellitus without complications; I10 Essential (primary) hypertension; E78.00 Pure hypercholesterolemia, unspecified; Z79.01 Long term (current) use of anticoagulants; I25.10 Atherosclerotic heart disease of native coronary artery without angina pectoris; K21.9 Gastro-esophageal reflux disease without esophagitis; G47.33 Obstructive sleep apnea (adult) (pediatric); Z95.5 Presence of coronary angioplasty implant and graft
CPT/HCPCS: 66984; 00142; J3301; J0171; J3490; J7030

== ENCOUNTER 2019-05-09 06:42 | Day surgery (SDC) | payer BC, MEDICARE ==
[2019-05-09] MEDS ORDERED: PROPOFOL 10 MG/ML VIAL IV ONE (06:43)
[2019-05-09] MEDS ORDERED: LIDOCAINE 2% MDV (20MG/ML) 20ML VIAL IV ONE (06:43)
[2019-05-09] MEDS ORDERED: 0.9 % SODIUM CHLORIDE 1000ML 500 ML IV ONE ×2 (08:33→08:45)
[2019-05-09] MEDS ORDERED: BRIMONIDINE TARTRATE 0.2% OPTHALMIC DROPS OP ONE (08:43)
[2019-05-09] MEDS ORDERED: NEOM/BACI/POLY/HC 3.5 GM OPTH OINT OPTH ONE (08:43)
[2019-05-09] MEDS ORDERED: TETRACAINE HCL 0.5% OPTH 2ML SOLU OPTH ONE (08:43)
[2019-05-09] MEDS ORDERED: EPINEPHRINE 1 MG/ML AMPUL IO ONE (08:43)
[2019-05-09] MEDS ORDERED: LIDOCAINE 2% MDV (20MG/ML) 20ML VIAL INJ ONE (08:43)
[2019-05-09] MEDS ORDERED: TRIAMCINOLONE ACET 40 MG/ML VIAL IM ONE ×2 (08:44→08:59)
[2019-05-09] MEDS ORDERED: TIMOLOL MALEATE 0.5% 5ML BTL OPTH ONE (08:44)
--- NOTE | 2019-05-10 09:21 | OP NOTE CHAMES ---
DATE OF PROCEDURE: 05/09/2019 PREOPERATIVE DIAGNOSIS: Nuclear sclerotic cataract, right eye. POSTOPERATIVE DIAGNOSIS: Nuclear sclerotic cataract, right eye. OPERATION: Phacoemulsification of cataractous lens with implantation of intraocular lens. LENS IMPLANT USED: [employer] Model PCB00 + 20.0 diopters. COMPLICATIONS: None. PROCEDURE IN DETAIL: Following a retrobulbar and facial block, the patient was prepped and draped in the usual fashion for eye surgery. A lid speculum was placed in the right eye after which a 2.4 mm tunnel wound was placed at the temporal limbus and dissected into clear cornea. A paracentesis was placed at 2 oclock hours to the left and right of the initial incision and the chamber deepened with Viscoelastic. The keratome was then used to enter the anterior chamber after which the continuous circular capsulorrhexis was accomplished without difficulty using a bent needle and a Utrata forceps. Hydrodissection and hydrodelineation of the lens was performed after which the nucleus of the lens was removed using the Phaco handpiece in the [id number] technique. The residual cortical material was irrigated and aspirated from the eye after which the bag and chamber were re-examined. The bag was re-inflated with Viscoelastic and the intraocular lens injected into the capsular bag where it centered well. The Viscoelastic was then copiously irrigated and aspirated from the eye after which the temporal tunnel wound and paracentesis were hydrated and the wounds were examined. They were noted to be watertight. The lid speculum was removed from the eye and the eye patched and shielded. The patient was transferred to the recovery room in satisfactory condition and given an appointment to be reexamined in the clinic later today or as directed by Dr. Jewell. JOB NUMBER: [id number] [facility]
== END 2019-05-09 09:36 | disposition home or self-care (01) ==
LOC: SUR 06:42
PROVIDERS: ATTEND Ophthalmology
DX: H25.11 Age-related nuclear cataract, right eye (principal); Z79.01 Long term (current) use of anticoagulants; E11.9 Type 2 diabetes mellitus without complications; I10 Essential (primary) hypertension; E78.00 Pure hypercholesterolemia, unspecified; I95.1 Orthostatic hypotension; I25.10 Atherosclerotic heart disease of native coronary artery without angina pectoris; G47.33 Obstructive sleep apnea (adult) (pediatric); Z95.5 Presence of coronary angioplasty implant and graft
CPT/HCPCS: 66984; 00142; J3301; J0171; J7030